=== PATIENT | female | born 1980 | race Caucasian/White ===

== ENCOUNTER 2016-05-28 01:28 | Emergency (ER) | payer BC, MEDICAID, OTHER ==
[~2016-05-28] VITALS: Ht 167.6 cm; Wt 59.0 kg
[2016-05-28 02:14] VITALS: BP 119/93
[2016-05-28] MEDS ORDERED: LORazepam Inj 2mg/ml 1ml IV ONE ×3 (02:15→04:15)
[2016-05-28] MEDS ORDERED: Solu-MEDROL 125mg Inj IVP ONE (02:15)
--- NOTE | 2016-05-28 02:56 | Emergency Room Report ---
History of Present Illness General Chief Complaint: Allergic Reaction Source: Patient Present Illness HPI This is a 36-year-old female who presents with an allergic reaction. Now her after eating dinner and on her way home she developed itching and welts on her body. She also developed of breath and felt left side of her neck being numb and a foreign body sensation. She took 100 mg of Benadryl without relief. Denies any fever chills denies any nausea vomiting. Does have some sore throat. No other complaint. She ate salad with pecans. She usually did not eat pecans. Allergies: Coded Allergies: METOCLOPRAMIDE (Verified Allergy, Unknown, 05/28/16) Patient History Past Medical History: see triage record, old chart reviewed Past Surgical History: none Pertinent Family History: none Social History: Denies: smoking Last Menstrual Period: 05/25/2016 Now: No Immunizations: other Reviewed Nursing Documentation: PMH: Agreed, PSxH: Agreed Nursing Documentation-PMH Past Medical History: No History, Except For Hx Neurological Problems: Yes Review of Systems Eye: Denies: blurred vision, eye pain ENT: Denies: ear pain, nose congestion, throat swelling Respiratory: Reports: shortness of breath, Denies: cough Cardiovascular: Denies: chest pain, palpitations Gastrointestinal: Denies: abdominal pain, diarrhea, nausea, vomiting Musculoskeletal: Denies: back pain, joint pain Skin: Reports: rash Neurological: Denies: headache, numbness Endocrine: Denies: increased thirst, increased urine Hematologic/Lymphatic: Denies: easy bruising All Other Systems: negative except mentioned in HPI Physical Exam Vital Signs Date Time Temp Pulse Resp B/P Pulse Ox O2 Delivery O2 Flow Rate FiO2 05/28/16 01:32 98.1 98 16 145/70 98 Room Air vitals unremarkable Sp02 EP Interpretation: reviewed, normal General Appearance: well appearing, no apparent distress, alert Head: normocephalic, atraumatic Eyes: bilateral eye EOMI, bilateral eye PERRL ENT: hearing grossly normal, normal pharynx Neck: full range of motion, supple, no meningismus Respiratory: chest non-tender, lungs clear, normal breath sounds Cardiovascular #1: regular rate, rhythm, no murmur Gastrointestinal: normal bowel sounds, non tender, no mass, no organomegaly, no bruit, non-distended Musculoskeletal: back normal, gait/station normal, normal range of motion Psychiatric: anxious Skin: warm/dry Medical Decision Making Diagnostic Impression: Primary Impression: Allergic reaction Qualified Codes: T78.40XA - Allergy, unspecified, initial encounter Additional Impression: Acute dyspnea ER Course Patient presents with allergic reaction and tachycardia with dyspnea. Tachycardia may be secondary to the multiple doses of Benadryl she took. She slowly improving. No respiratory distress. I did a CT scan to rule out PE. We 'll discharge home if negative. Lab Results Impression labs unremarkable except for elevate d-dimer CT/MRI/US Diagnostic Results CT/MRI/US Diagnostic Results : Imaging Test Ordered: ct chest Impression Neg per radiologist. Last Vital Signs Date Time Temp Pulse Resp B/P Pulse Ox O2 Delivery O2 Flow Rate FiO2 05/28/16 02:14 98.1 122 16 119/93 100 Room Air Status: improved Disposition: HOME, SELF-CARE Condition: Stable Scripts Prednisone* (PREDNISONE*) 20 Mg Tablet 40 MG ORAL DAILY, #8 TAB Prov: JUNITO MORALES M.D. 05/28/16 Patient Instructions: Food Allergy Additional Instructions: Followup with your DrDana in 7 days. Return if symptom worsen. JUNITO MORALES M.D. May 28, 2016 02:56
[2016-05-28 03:04] LABS: APPEARANCE,URINE CLEAR; KETONES,URINE NEGATIVE (NEGATIVE); LEUKOCYTE ESTERASE ,URINE 2+ (NEGATIVE); NITRITE,URINE NEGATIVE (NEGATIVE); PH,URINE 6 (4.5-8.0); PROTEIN,URINE NEGATIVE (NEGATIVE); UROBILINOGEN,URINE NORMAL MG/DL (0.0-1.0)
[2016-05-28 03:25] LABS: BACTERIA,URINE FEW /HPF; SQUAMOUS EPITHELIAL CELL,UR FEW /LPF (NONE/OCC)
[2016-05-28 04:20] LABS: ANION GAP 16 (5-15); CALCIUM 8.9 mg/dL (8.6-10.2); CARBON DIOXIDE 21 mEQ/L (20-30); CHLORIDE 102 mEQ/L (98-107); CREATININE 0.6 mg/dL (0.5-0.9); GLOMERULAR FILTRATION RATE > 60 mL/min (>60); HEMOLYSIS 195; SODIUM 139 mEQ/L (135-145)
[2016-05-28 04:25] LABS: BASOPHILS % (AUTO) 1.1 % (0.0-2.0); EOSINOPHILS % (AUTO) 1.7 % (0.0-3.0); LYMPHOCYTES % (AUTO) 30.6 % (20.0-45.0); MEAN CORPUSCULAR HEMOGLOBIN 29.6 PG (27.0-31.0); MEAN CORPUSCULAR HGB CONC 32.4 G/DL (32.0-36.0); MEAN CORPUSCULAR VOLUME 91 FL (80-99); MEAN PLATELET VOLUME 5.4 FL (6.5-10.1); MONOCYTES % (AUTO) 3.2 % (1.0-10.0); NEUTROPHILS % (AUTO) 63.3 % (45.0-75.0); PLATELET COUNT 578 K/UL (150-450); RED BLOOD COUNT 4.11 M/UL (4.20-5.40); RED CELL DISTRIBUTION WIDTH 14.1 % (11.6-14.8); WHITE BLOOD COUNT 7.9 K/UL (4.8-10.8)
[2016-05-28] MEDS ORDERED: DiphenhydrAMINE 50mg/ml Inj IVP ONE (04:45)
[2016-05-28] MEDS ORDERED: methylPREDNISolone Sod Succ 500 MG in NS 110 ML IVPB ONE ×2 (04:45→05:00)
[2016-05-28 06:20] VITALS: BP 121/83
[2016-05-28] MEDS ORDERED: PREDNISONE20 MG ORAL (06:33)
[2016-05-28 06:37] VITALS: BP 121/83
--- NOTE | 2016-05-28 09:42 | Diagnostic Imaging Report ---
ndication: Shortness of breath, chest pain Technique: IV administration nonionic contrast. Spiral acquisitions obtained from the lung bases to the lung apices. Multiplanar and 3-D reconstructions were generated. Total dose length product 750 mGycm. CTDIvol(s) 12, 63, 20 mGy. Per the technologist, the IV was a small caliber IV, due to patient being a difficult stick, which infiltrated during the infusion of contrast Comparison: None Findings: There is essentially no opacification of the pulmonary arteries. A very small amount of contrast is seen within the superior vena cava, aorta, and left ventricle. Findings are nondiagnostic 4 the diagnosis or exclusion of pulmonary embolus. Normal caliber thoracic aorta, no gross evidence of dissection although this is not excludable. Lung window images demonstrate an azygos lobe and fissure-normal anatomic variant. There is some image degradation due to respiratory motion artifact. No infiltrates, effusions, congestion, masses, or nodules. The heart size is normal. No pericardial effusion. No mediastinal or hilar mass or adenopathy. The included portions of the thyroid are unremarkable. No axillary or chest wall mass or adenopathy. The included upper abdominal anatomy is unremarkable Impression: Nondiagnostic for evaluation of pulmonary embolus, due to inadequate pulmonary arterial opacification No definite acute or significant abnormality demonstrated otherwise This agrees with the preliminary interpretation provided overnight by [facility]erad[facility] service. The CT scanner at [facility] is accredited by the [employer] and the scans are performed using protocols designed to limit radiation exposure to as low as reasonably achievable to attain images of sufficient resolution adequate for diagnostic evaluation.
== END 2016-05-28 06:37 | disposition home or self-care (01) ==
LOC: EMR 02:10
DX: T78.40XA Allergy, unspecified, initial encounter (principal); X58.XXXA Exposure to other specified factors, initial encounter; R06.00 Dyspnea, unspecified; R00.0 Tachycardia, unspecified
CPT/HCPCS: 36415; 71275; 80048; 80300; 81001; 81025; 85025; 85379; 87086; 96374; 96375; 99284; J1200; J2405; J2930; Q9967

== ENCOUNTER 2016-11-17 01:38 | Emergency (ER) | payer MEDICAID, OTHER ==
[~2016-11-17] VITALS: Ht 172.7 cm; Wt 54.4 kg
[~2016-11-17 01:38] MED LIST: PREDNISONE20 MG ORAL
[2016-11-17 02:00] VITALS: BP 128/70
[2016-11-17] MEDS ORDERED: Norco 5mg/325mg tab ORAL ONE (02:00)
[2016-11-17 02:09] LABS: APPEARANCE,URINE CLEAR; KETONES,URINE NEGATIVE (NEGATIVE); LEUKOCYTE ESTERASE ,URINE NEGATIVE (NEGATIVE); NITRITE,URINE POSITIVE (NEGATIVE); PH,URINE 5 (4.5-8.0); PROTEIN,URINE NEGATIVE (NEGATIVE); UROBILINOGEN,URINE 8 MG/DL (0.0-1.0)
[2016-11-17 02:21] LABS: BACTERIA,URINE OCCASIONAL /HPF; MUCUS,URINE FEW /LPF (NONE/OCC); RBC,URINE 0-2 /HPF (0 - 2); SQUAMOUS EPITHELIAL CELL,UR MODERATE /LPF (NONE/OCC); WBC,URINE 0-2 /HPF (0 - 2)
[2016-11-17] MEDS ORDERED: KEFLEX500 MG ORAL (02:33)
[2016-11-17] MEDS ORDERED: ACETAMINOPHEN-1 EAC1 ORAL (02:33)
[2016-11-17 02:44] VITALS: BP 128/70
--- NOTE | 2016-11-17 03:50 | Emergency Room Report ---
History of Present Illness General Chief Complaint: General Complaint Source: Patient Present Illness HPI 36-year-old female presents ED playing a toothache x2 days. Notes pain to tooth in right upper jaw. Patient states her dental insurance did not start until December 02. States pain is a 10 out of 10, throbbing, nonradiating. Denies any fevers or chills. Patient is also complaining of burning sensation when urinating for the last few days. Patient believes she has a UTI. Is currently taking Perdiem [id number]. Denies nausea or vomiting. No other aggravating relieving factors. Denies any other associated symptoms Allergies: Coded Allergies: METOCLOPRAMIDE (Verified Allergy, Unknown, 05/28/16) Uncoded Allergies: IV CONTRAST (Allergy, Unknown, 05/28/16) Patient History Past Medical History: none Past Surgical History: none Pertinent Family History: none Social History: Denies: alcohol use, drug use, smoking Now: No Immunizations: UTD Reviewed Nursing Documentation: PMH: Agreed, PSxH: Agreed Nursing Documentation-PMH Past Medical History: No Stated History Hx Cardiac Problems: No Hx Hypertension: No Hx Pacemaker: No Hx Asthma: No Hx COPD: No Hx Diabetes: No Hx Cancer: No Hx Gastrointestinal Problems: No Hx Dialysis: No History Of Psychiatric Problem: No Hx Neurological Problems: No Hx Cerebrovascular Accident: No Hx Seizures: No Review of Systems All Other Systems: negative except mentioned in HPI Physical Exam Vital Signs Date Time Temp Pulse Resp B/P Pulse Ox O2 Delivery O2 Flow Rate FiO2 11/17/16 01:48 98.4 96 16 128/70 98 Room Air Sp02 EP Interpretation: reviewed, normal General Appearance: alert, GCS 15, non-toxic, mild distress Head: normocephalic Eyes: bilateral eye PERRL, bilateral eye normal inspection ENT: other - pain to R upper 3rd molar. no fluctuance Neck: normal inspection Respiratory: chest non-tender, lungs clear, normal breath sounds, speaking full sentences Cardiovascular #1: normal inspection Gastrointestinal: normal inspection Rectal: deferred Genitourinary: no CVA tenderness Musculoskeletal: normal inspection Neurologic: alert, oriented x3, responsive, motor strength/tone normal, sensory intact, speech normal Psychiatric: normal inspection Skin: normal inspection Lymphatic: normal inspection Medical Decision Making Diagnostic Impression: Primary Impression: Positive test Additional Impressions: Tooth pain UTI (urinary tract infection) Qualified Codes: N39.0 - Urinary tract infection, site not specified ER Course 36-year-old female presents ED complaining of tooth pain. also c/o UTI Differential - Cracked tooth, dental abscess, cavity Patient placed on stretcher. After initial history, physical exam reveals a young female in mild distress. The tooth in question; there is no pulp exposed. No surrounding abscess. No induration or swelling. Given [place] in ED with pain improved UA positive. also positive. patient states she was unaware she was . No vaginal bleeding. No abdominal pain. She will followup with her [employer]IST we will prescribe Keflex which should help with both tooth pain and UTI. Safe in Diagnosis- positive test, tooth pain, UTI Stable and discharged to home prescription for Tylenol, Keflex. Instructed to see dentist. f/u with PMD/OBGYN. Return to ED if symptoms recur or worse Labs Test 11/17/16 01:56 Urine Color Red Urine Appearance Clear Urine pH 5 (4.5-8.0) Urine Specific Scott 1.020 (1.005-1.035) Urine Protein Negative (NEGATIVE) Urine Glucose (UA) Negative (NEGATIVE) Urine Ketones Negative (NEGATIVE) Urine Occult Blood 1+ (NEGATIVE) Urine Nitrite Positive (NEGATIVE) Urine Bilirubin 3+ (NEGATIVE) Urine Ictotest Urine Urobilinogen 8 MG/DL (0.0-1.0) Urine Leukocyte Esterase Negative (NEGATIVE) Urine RBC 0-2 /HPF (0 - 2) Urine WBC 0-2 /HPF (0 - 2) Urine Squamous Epithelial Cells Moderate /LPF (NONE/OCC) Urine Bacteria Occasional /HPF (NONE) Urine Mucus Few /LPF (NONE/OCC) Urine HCG, Qualitative Positive Last Vital Signs Date Time Temp Pulse Resp B/P Pulse Ox O2 Delivery O2 Flow Rate FiO2 11/17/16 02:44 98.4 11/17/16 02:44 96 16 128/70 98 Room Air Status: improved Disposition: HOME, SELF-CARE Condition: Stable Scripts Acetaminophen With Codeine (T#3) (TYLENOL #3 TAB*) Y Tab 1 TAB ORAL Q8H Y for For Pain, #20 TAB Prov: BRICE JADE M.D. 11/17/16 Cephalexin* (KEFLEX*) 500 Mg Capsule 500 MG ORAL Q6H, #28 CAP 0 Refills Prov: BRICE JADE M.D. 11/17/16 Patient Instructions: Dental Pain, Told-oa-Ectb BRICE JADE M.D. Nov 17, 2016 03:50
== END 2016-11-17 02:44 | disposition home or self-care (01) ==
LOC: EMR 01:58
DX: K08.89 Other specified disorders of teeth and supporting structures (principal); N39.0 Urinary tract infection, site not specified; Z32.01 Encounter for pregnancy test, result positive; Z88.8 Allergy status to other drugs, medicaments and biological substances; Z91.041 Radiographic dye allergy status
CPT/HCPCS: 81003; 81025; 99284

== ENCOUNTER 2017-02-23 15:46 | Emergency (ER) | payer MEDICAID, OTHER ==
[~2017-02-23] VITALS: Ht 167.6 cm; Wt 61.7 kg
[~2017-02-23 15:46] MED LIST changes: +ACETAMINOPHEN-1 EAC1 ORAL; +KEFLEX500 MG ORAL
[2017-02-23 16:10] VITALS: BP 142/86
[2017-02-23] MEDS ORDERED: Norco 5mg/325mg tab ORAL ONE (16:45)
[2017-02-23] MEDS ORDERED: TRAMADOL HCL50 MG ORAL (17:02)
[2017-02-23] MEDS ORDERED: AMOXICILLIN500 MG ORAL (17:03)
[2017-02-23 17:05] VITALS: BP 142/86
--- NOTE | 2017-02-23 22:21 | Emergency Room Report ---
History of Present Illness General Chief Complaint: Pain Source: Patient Present Illness HPI The patient is a 36 old female presenting for left sided facial pain and dental pain. She states that she first noticed tooth pain one week ago which she states that triggered her trigeminal neuralgia pain. Pain is a 10 out of 10 sharp sensation to the left upper tooth and is worse with chewing. She denies any other symptoms including N, V, cough, rash, dizziness, CP Allergies: Coded Allergies: METOCLOPRAMIDE (Verified Allergy, Unknown, 05/28/16) Uncoded Allergies: IV CONTRAST (Allergy, Unknown, 05/28/16) Patient History Past Medical History: see triage record Pertinent Family History: none Last Menstrual Period: 02/02/17 placental abruption Now: No Reviewed Nursing Documentation: PMH: Agreed, PSxH: Agreed Nursing Documentation-PMH Hx Cardiac Problems: Yes - SVT - had ablation 2012 Hx Hypertension: No Hx Pacemaker: No Hx Asthma: No Hx COPD: No Hx Diabetes: No Hx Cancer: No Hx Gastrointestinal Problems: No Hx Dialysis: No - Stent in right ureter Hx Neurological Problems: Yes - Occipital neuralgia Hx Cerebrovascular Accident: No Hx Seizures: No Review of Systems All Other Systems: negative except mentioned in HPI Physical Exam Vital Signs Date Time Temp Pulse Resp B/P (MAP) Pulse Ox O2 Delivery O2 Flow Rate FiO2 02/23/17 16:00 98.1 111 16 142/86 100 Room Air Sp02 EP Interpretation: reviewed, normal General Appearance: no apparent distress, alert, GCS 15, non-toxic Head: normocephalic, atraumatic Eyes: bilateral eye normal inspection, bilateral eye PERRL ENT: hearing grossly normal, normal pharynx, no angioedema, normal voice, uvula midline, other - TTP over the L upper premolar with surrounding erythema Neck: full range of motion, supple/symm/no masses Respiratory: chest non-tender, lungs clear, normal breath sounds, speaking full sentences Musculoskeletal: back normal, gait/station normal, normal range of motion, non- tender Neurologic: alert, oriented x3, responsive, motor strength/tone normal, sensory intact, speech normal Psychiatric: judgement/insight normal, memory normal, mood/affect normal, no suicidal/homicidal ideation Skin: normal color, no rash, warm/dry, well hydrated Lymphatic: no adenopathy Medical Decision Making PA Attestation Dr. Massey is my supervising physician. Patient management was discussed with my supervising physician Diagnostic Impression: Primary Impression: Dental infection ER Course The patient is a 36 old female presenting for left sided facial pain and dental pain. Diagnoses considered but not limited to: Dental jayda, dental abscess, toothache , gingivitis PE: afebrile. NAD HEENT: L upper premolar tenderness with surrounding erythema. No abscess. The patient be treated for dental infection with prescriptions for pain medication and antibiotics. She needs to FU with dentist DACIA Last Vital Signs Date Time Temp Pulse Resp B/P (MAP) Pulse Ox O2 Delivery O2 Flow Rate FiO2 02/23/17 17:05 98.1 74 16 142/86 100 Room Air Status: improved Disposition: HOME, SELF-CARE Condition: Improved Scripts Amoxicillin* (AMOXIL*) 500 Mg Capsule 500 MG ORAL Q12HR, #20 CAP Prov: DOTTIE ALBERT 02/23/17 Tramadol Hcl* (ULTRAM*) 50 Mg Tablet 50 MG ORAL Q6H Y for For Pain, #10 TAB 0 Refills Prov: DOTTIE ALBERT 02/23/17 Patient Instructions: Dental Pain Additional Instructions: I discussed my findings with the patient. All questions and concerns have been answered. Treatment and medication compliance have been addressed. I advised the patient that they need to follow up with PMD in 3-5 days. Return to ED if symptoms worsen, new symptoms arise, or if needed for any reason. Patient verbalized understanding of discharge instructions. DOTTIE ALBERT Feb 23, 2017 22:21
== END 2017-02-23 17:35 | disposition home or self-care (01) ==
LOC: EMR 16:45
DX: K04.7 Periapical abscess without sinus (principal); R51 Headache; Z88.8 Allergy status to other drugs, medicaments and biological substances; Z91.041 Radiographic dye allergy status
CPT/HCPCS: 99283

== ENCOUNTER 2017-04-09 18:19 | Emergency (ER) | payer MEDICAID, OTHER ==
[~2017-04-09] VITALS: Ht 167.6 cm; Wt 59.0 kg
[~2017-04-09 18:19] MED LIST changes: +AMOXICILLIN500 MG ORAL; +TRAMADOL HCL50 MG ORAL
[2017-04-09] MEDS ORDERED: Ketorolac 30mg Inj IV ONE (19:15)
[2017-04-09 19:29] VITALS: BP 140/82
[2017-04-09 20:45] LABS: EOSINOPHILS % (AUTO) 0.8 % (0.0-3.0); LYMPHOCYTES % (AUTO) 27.7 % (20.0-45.0); MEAN CORPUSCULAR HEMOGLOBIN 28.7 PG (27.0-31.0); MEAN CORPUSCULAR VOLUME 90 FL (80-99); MEAN PLATELET VOLUME 5.7 FL (6.5-10.1); MONOCYTES % (AUTO) 7.1 % (1.0-10.0); NEUTROPHILS % (AUTO) 63.4 % (45.0-75.0); PLATELET COUNT 361 K/UL (150-450); RED BLOOD COUNT 4.14 M/UL (4.20-5.40); RED CELL DISTRIBUTION WIDTH 16.4 % (11.6-14.8); WHITE BLOOD COUNT 6.2 K/UL (4.8-10.8)
[2017-04-09 20:46] LABS: APPEARANCE,URINE SLIGHTLY CLOUDY; KETONES,URINE NEGATIVE (NEGATIVE); LEUKOCYTE ESTERASE ,URINE 3+ (NEGATIVE); NITRITE,URINE NEGATIVE (NEGATIVE); PH,URINE 6 (4.5-8.0); PROTEIN,URINE 1+ (NEGATIVE); UROBILINOGEN,URINE NORMAL MG/DL (0.0-1.0)
[2017-04-09 20:54] LABS: BACTERIA,URINE FEW /HPF; SQUAMOUS EPITHELIAL CELL,UR MANY /LPF (NONE/OCC)
[2017-04-09 21:05] LABS: ANION GAP 11 mmol/L (5-15); CALCIUM 8.9 MG/DL (8.5-10.1); CARBON DIOXIDE 24 MMOL/L (21-32); CHLORIDE 107 MMOL/L (98-107); CREATININE 0.9 MG/DL (0.55-1.30); GLOMERULAR FILTRATION RATE > 60 mL/min (>60); POTASSIUM 3.4 MMOL/L (3.5-5.1); SODIUM 142 MMOL/L (136-145)
[2017-04-09 21:09] LABS: ALANINE AMINOTRANSFERASE 14 U/L (12-78); ALBUMIN/GLOBULIN RATIO 1.1 (1.0-2.7); ASPARTATE AMINO TRANSFERASE 15 U/L (15-37); LIPASE 125 U/L (73-393); TOTAL PROTEIN 7.4 G/DL (6.4-8.2)
[2017-04-09] MEDS ORDERED: cefTRIAXone 1 GM in NS 55 ML IVPB ONE (21:15)
[2017-04-09] MEDS ORDERED: Morphine Sulfate 4mg/ml Inj IVP ONE (21:15)
[2017-04-09] MEDS ORDERED: DiphenhydrAMINE 50mg/ml Inj IVP ONE (21:30)
[2017-04-09] MEDS ORDERED: Solu-MEDROL 125mg Inj IVP ONE (22:00)
[2017-04-09] MEDS ORDERED: KEFLEX500 MG ORAL (22:10)
[2017-04-09] MEDS ORDERED: NORCO 5-325 TA1 EAC1 ORAL (22:27)
--- NOTE | 2017-04-09 22:35 | Emergency Room Report ---
History of Present Illness General Chief Complaint: Abdominal Pain Source: Patient Present Illness HPI Patient is a 37-year-old female with increased right flank pain. Patient had sudden onset of symptoms. The patient had reported prior history of renal stent on the right side. The patient also reports having prior history of ovarian cysts. She reports having been chronically taking pain medications for neck pain. She states that she has not been vomiting. She denied any fever.The patient reported having severe sharp pain. Allergies: Coded Allergies: METOCLOPRAMIDE (Verified Allergy, Unknown, 05/28/16) Uncoded Allergies: IV CONTRAST (Allergy, Unknown, 05/28/16) Patient History Last Menstrual Period: June 2016 Now: No : 3 Para: 2 Reviewed Nursing Documentation: PMH: Agreed, PSxH: Agreed Nursing Documentation-PMH Hx Cardiac Problems: Yes - Hx SVT Hx Hypertension: No Hx Pacemaker: No Hx Asthma: No Hx COPD: No Hx Diabetes: No Hx Cancer: No Hx Dialysis: No - Stent in right ureter Hx Neurological Problems: Yes - left sided occipital neuralgia Hx Cerebrovascular Accident: No Hx Seizures: No Physical Exam Vital Signs Date Time Temp Pulse Resp B/P (MAP) Pulse Ox O2 Delivery O2 Flow Rate FiO2 04/09/17 18:24 97.9 138 14 134/95 98 04/09/17 19:29 Room Air Medical Decision Making Diagnostic Impression: Primary Impression: Renal colic on right side Additional Impression: UTI (urinary tract infection) ER Course Patient presented for flank pain. Differential diagnosis included was not limited to pneumonia, renal stone, rib fracture, pulmonary embolism, ulcer, enteritis, pyelonephritis among others. Because of complexity of patient's case laboratory testing and imaging studies were ordered. The [facility] database was reviewed for the patient's prior prescription history. The patient was noted to have a recent prescriptions for Ultram. The patient was noted to have possible kidney stone on ultrasound without evidence of hydronephrosis. The pelvic ultrasound showed no evidence of ovarian cyst or torsion. The patient was given IV fluids as well as IV pain medications. The patient was noted to have some urticarial rash associated with morphine and was given IV Benadryl. The patient is advised to follow up with primary care doctor in 1-2 days. The patient was also advised followup with her urologist. Patient is advised to return if any worsening condition or if any changes in status that are concerning. Labs Test 04/09/17 20:20 White Blood Count 6.2 K/UL (4.8-10.8) Red Blood Count 4.14 M/UL (4.20-5.40) Hemoglobin 11.9 G/DL (12.0-16.0) Hematocrit 37.1 % (37.0-47.0) Mean Corpuscular Volume 90 FL (80-99) Mean Corpuscular Hemoglobin 28.7 PG (27.0-31.0) Mean Corpuscular Hemoglobin Concent 32.0 G/DL (32.0-36.0) Red Cell Distribution Width 16.4 % (11.6-14.8) Platelet Count 361 K/UL (150-450) Mean Platelet Volume 5.7 FL (6.5-10.1) Neutrophils (%) (Auto) 63.4 % (45.0-75.0) Lymphocytes (%) (Auto) 27.7 % (20.0-45.0) Monocytes (%) (Auto) 7.1 % (1.0-10.0) Eosinophils (%) (Auto) 0.8 % (0.0-3.0) Basophils (%) (Auto) 1.0 % (0.0-2.0) Urine Color Pale yellow Urine Appearance Slightly cloudy Urine pH 6 (4.5-8.0) Urine Specific Arvin 1.005 (1.005-1.035) Urine Protein 1+ (NEGATIVE) Urine Glucose (UA) Negative (NEGATIVE) Urine Ketones Negative (NEGATIVE) Urine Occult Blood 5+ (NEGATIVE) Urine Nitrite Negative (NEGATIVE) Urine Bilirubin Negative (NEGATIVE) Urine Urobilinogen Normal MG/DL (0.0-1.0) Urine Leukocyte Esterase 3+ (NEGATIVE) Urine RBC 2-4 /HPF (0 - 2) Urine WBC 5-10 /HPF (0 - 2) Urine Squamous Epithelial Cells Many /LPF (NONE/OCC) Urine Bacteria Few /HPF (NONE) Sodium Level 142 MMOL/L (136-145) Potassium Level 3.4 MMOL/L (3.5-5.1) Chloride Level 107 MMOL/L (98-107) Carbon Dioxide Level 24 MMOL/L (21-32) Anion Gap 11 mmol/L (5-15) Blood Urea Nitrogen 13 mg/dL (7-18) Creatinine 0.9 MG/DL (0.55-1.30) Estimat Glomerular Filtration Rate > 60 mL/min (>60) Glucose Level 96 MG/DL (74-106) Calcium Level 8.9 MG/DL (8.5-10.1) Total Bilirubin 0.2 MG/DL (0.2-1.0) Aspartate Amino Transf (AST/SGOT) 15 U/L (15-37) Alanine Aminotransferase (ALT/SGPT) 14 U/L (12-78) Alkaline Phosphatase 66 U/L (46-116) Total Protein 7.4 G/DL (6.4-8.2) Albumin 3.8 G/DL (3.4-5.0) Globulin 3.6 g/dL Albumin/Globulin Ratio 1.1 (1.0-2.7) Lipase 125 U/L (73-393) Last Vital Signs Date Time Temp Pulse Resp B/P (MAP) Pulse Ox O2 Delivery O2 Flow Rate FiO2 04/09/17 19:29 97.9 14 140/82 100 Room Air 04/09/17 18:24 138 Status: improved Disposition: HOME, SELF-CARE Condition: Stable Scripts Hydrocodone Bit/Acetaminophen 5-325* (NORCO 5-325 TABLET*) 1 Each Tablet 1 TAB ORAL Q4H Y for For Pain, #20 TAB Prov: Rob Lama 04/09/17 Cephalexin* (KEFLEX*) 500 Mg Capsule 500 MG ORAL Q6H, #28 CAP 0 Refills Prov: Rob Lama 04/09/17 Patient Instructions: Abdominal Pain, Adult Rob Lama Apr 09, 2017 22:35
[2017-04-09 22:45] VITALS: BP 130/81
[2017-04-09] MEDS ORDERED: Lidocaine 2% 100mg/5ml Carp IV ONE (22:45)
--- NOTE | 2017-04-10 12:14 | Diagnostic Imaging Report ---
Indication: Pain. Per patient, history of renal stent for UPJ obstruction. Stent removed one month ago. Renal stone passed before stent was placed. Assess for hydronephrosis. Technique: Grayscale and color Doppler imaging of the kidneys and bladder. Comparison: None available. Correlation made to images of the upper abdomen from CT angiogram of the chest 05/28/16 Findings: Right kidney measures 11.2 cm in length. It demonstrates normal parenchymal thickness and echogenicity. There is no hydronephrosis. Punctate, non-shadowing foci in the right kidney noted and may represent a small nonobstructing renal stones versus artifact. Normal vascular flow to the right kidney is seen. The left kidney measures 10 cm length. Images normal parenchymal thickness and echogenicity. There is no hydronephrosis. A simple appearing renal cyst is noted in the lower pole the left kidney. Bladder is unremarkable in appearance. Imaged portions of the IVC and liver are unremarkable in appearance. Impression: No evidence of hydronephrosis bilaterally. Echogenic foci in the right kidney which may be artifactual versus reflect nonobstructing punctate stones. Noncontrast CT scan can be obtained as clinically indicated. This corresponds with the preliminary report.
--- NOTE | 2017-04-10 12:22 | Diagnostic Imaging Report ---
Indication: Pelvic pain. History of ovarian cysts an ovarian torsion surgery in 2013. in February 2017. IUD placed after . Technique: Transabdominal and endovaginal pelvic ultrasound was performed. Findings: status was not reported. Please correlate with clinical history/current status results. Intrauterine device is noted. Uterus measures 8.4 x 5 x 6.4 cm. Endometrial thickness measures 2.3 mm. There is no free pelvic fluid. There is a hypoattenuating structure in the cervix representing nabothian cyst. A low attenuation structure in the uterine fundus is noted. There is no internal vascularity on interrogation with color Doppler. Bilateral ovaries are identified with color flow. No evidence to suggest ovarian torsion at this time. Small follicular cysts are seen. Impression: No evidence to suggest ovarian torsion at this time. No complex adnexal lesion. Intrauterine device in place. Indeterminate fluid or cystic structure in the endometrial cavity. Correlate clinically. Short-term interval followup ultrasound be obtained to assess for interval change. Probable nabothian cyst. This corresponds to the preliminary report.
== END 2017-04-09 22:45 | disposition home or self-care (01) ==
LOC: EMR 18:40
DX: N39.0 Urinary tract infection, site not specified (principal); Z97.5 Presence of (intrauterine) contraceptive device
CPT/HCPCS: 36415; 76775; 76856; 80053; 81003; 83690; 85025; 96361; 96365; 96375; 99284; J0696; J1200; J2270; J2405; J2930

== ENCOUNTER 2017-09-12 01:06 | Emergency (ER) | payer MEDICAID ==
[~2017-09-12] VITALS: Ht 167.6 cm; Wt 59.0 kg
[~2017-09-12 01:06] MED LIST changes: +NORCO 5-325 TA1 EAC1 ORAL
[2017-09-12] MEDS ORDERED: Ketorolac 30mg Inj IV ONE (01:30)
[2017-09-12] MEDS ORDERED: Morphine Sulfate 4mg/ml Inj IVP ONE (01:30)
--- NOTE | 2017-09-12 01:30 | Emergency Room Report ---
History of Present Illness General Chief Complaint: Headache Source: Patient Present Illness HPI Is a 37-year-old female with a history of occipital neuralgia. She get frequent headache. She had a bad headache every 3 or 4 months requiring go to the ER. No fever chills. This headache has been ongoing for last 3 days. Mostly in the left side radiating to the front. Has nausea but no vomiting. No fever chills but no focal deficit. No slurred speech. Pain is 10 out of 10. Allergies: Coded Allergies: METOCLOPRAMIDE (Verified Allergy, Unknown, 05/28/16) Uncoded Allergies: IV CONTRAST (Allergy, Unknown, 05/28/16) Patient History Past Medical History: see triage record, old chart reviewed Past Surgical History: other Pertinent Family History: none Social History: Denies: smoking Last Menstrual Period: 08/11/17 Now: No Immunizations: other Reviewed Nursing Documentation: PMH: Agreed; PSxH: Agreed Nursing Documentation-PMH Past Medical History: No History, Except For Hx Cardiac Problems: Yes - SVT Hx Hypertension: No Hx Pacemaker: No Hx Asthma: No Hx COPD: No Hx Diabetes: No Hx Cancer: No Hx Dialysis: No - Stent in right ureter Hx Neurological Problems: Yes - Left sided occipital neuralgia Hx Cerebrovascular Accident: No Hx Seizures: No Review of Systems Eye: Denies: eye pain, blurred vision ENT: Denies: ear pain, nose congestion, throat swelling Respiratory: Denies: cough, shortness of breath Cardiovascular: Denies: chest pain, palpitations Gastrointestinal: Denies: abdominal pain, diarrhea, nausea, vomiting Musculoskeletal: Denies: back pain, joint pain Skin: Denies: rash Neurological: Reports: headache; Denies: numbness Endocrine: Denies: increased thirst, increased urine Hematologic/Lymphatic: Denies: easy bruising All Other Systems: negative except mentioned in HPI Physical Exam Vital Signs Date Time Temp Pulse Resp B/P (MAP) Pulse Ox O2 Delivery O2 Flow Rate FiO2 09/12/17 01:13 98.5 160 16 130/92 97 Room Air 98.4 vitals with tachycardia Sp02 EP Interpretation: reviewed, normal General Appearance: well appearing, no apparent distress, alert Head: normocephalic, atraumatic Eyes: bilateral eye PERRL, bilateral eye EOMI ENT: hearing grossly normal, normal pharynx Neck: full range of motion, supple, no meningismus Respiratory: chest non-tender, lungs clear, normal breath sounds Cardiovascular #1: regular rate, rhythm, no murmur, tachycardia - 120 Gastrointestinal: normal bowel sounds, non tender, no mass, no organomegaly, no bruit, non-distended Musculoskeletal: back normal, gait/station normal, normal range of motion Psychiatric: mood/affect normal Skin: warm/dry Medical Decision Making Diagnostic Impression: Primary Impression: Headache Qualified Codes: R51 - Headache ER Course Patient presents with exacerbation of her chronic headache. She is sexually for IV access for multiple ER visit and blood drawn the past. She wanted her meds as IM. Heart rate much improved down to the 90s. We'll discharge home. I see no evidence of ACS, PE, dissection to name a few. This headache is typical in presentation for her. Last Vital Signs Date Time Temp Pulse Resp B/P (MAP) Pulse Ox O2 Delivery O2 Flow Rate FiO2 09/12/17 01:13 98.5 160 16 130/92 97 Room Air 98.4 Status: improved Disposition: HOME, SELF-CARE Condition: Stable Patient Instructions: General Headache Without Cause Additional Instructions: Follow-up with your DrDana in 3-5 days. Return if symptom worsen. JUNITO MORALES M.D. September 12, 2017 01:30
[2017-09-12] MEDS ORDERED: Morphine Sulfate 4mg/ml Inj ONE (02:02)
[2017-09-12] MEDS ORDERED: Ketorolac 30mg Inj IM ONE (02:30)
[2017-09-12] MEDS ORDERED: Morphine Sulfate 4mg/ml Inj IM ONE (02:30)
[2017-09-12 02:37] VITALS: BP 130/92
== END 2017-09-12 02:42 | disposition home or self-care (01) ==
LOC: EMR 01:29
DX: R51 Headache (principal); M54.81 Occipital neuralgia; Z88.8 Allergy status to other drugs, medicaments and biological substances; Z91.041 Radiographic dye allergy status
CPT/HCPCS: 96372; 96374; 96375; 99283; J1885; J2270

== ENCOUNTER 2017-10-08 21:14 | Emergency (ER) | payer MEDICAID ==
[~2017-10-08] VITALS: Ht 167.6 cm; Wt 60.3 kg
--- NOTE | 2017-10-08 21:35 | Emergency Room Report ---
History of Present Illness General Chief Complaint: Upper Extremity Injury Source: Patient Present Illness HPI Patient is a 37-year-old female who presents after increased left thumb pain. Patient ports having periods fracture to her left thumb. Patient reports having hyperextended her thumb and having increased pain subsequently. Patient denies other recent trauma. Allergies: Coded Allergies: METOCLOPRAMIDE (Verified Allergy, Unknown, 05/28/16) Uncoded Allergies: IV CONTRAST (Allergy, Unknown, 05/28/16) Patient History Last Menstrual Period: unknown Now: No Reviewed Nursing Documentation: PMH: Agreed; PSxH: Agreed Nursing Documentation-PMH Hx Cardiac Problems: Yes - SVT Hx Hypertension: No Hx Pacemaker: No Hx Asthma: No Hx COPD: No Hx Diabetes: No Hx Cancer: No Hx Dialysis: No - Stent in right ureter Hx Neurological Problems: Yes - Left sided occipital neuralgia Hx Cerebrovascular Accident: No Hx Seizures: No Review of Systems All Other Systems: negative except mentioned in HPI Physical Exam Vital Signs Date Time Temp Pulse Resp B/P (MAP) Pulse Ox O2 Delivery O2 Flow Rate FiO2 10/08/17 21:17 98.5 118 18 159/84 98 Room Air 98.4 General Appearance: well appearing, no apparent distress, alert, GCS 15, non- toxic Head: normocephalic, atraumatic ENT: hearing grossly normal, normal voice Neck: full range of motion, supple Respiratory: no respiratory distress, speaking full sentences Musculoskeletal: no calf tenderness Neurologic: normal gait Psychiatric: mood/affect normal Skin: no rash Medical Decision Making Diagnostic Impression: Primary Impression: Left thumb sprain ER Course The patient presented for left thumb pain. The differential diagnosis included wasn't limited to sprain, fracture, dislocation among others. The patient states that she takes tramadol chronically for headaches. The patient was noted to have laxity with hyperextension. X-ray of the left hand 3 views interpreted by me showed normal bony alignment with the noted evident fracture. The patient was placed in his thumb spica splint. The patient is advised to follow-up with primary care physician for orthopedic referral. The patient was given Tylenol for pain. The patient was given prescription for ibuprofen. The patient appears to be somewhat upset that she was not given stronger narcotic pain medications prescriptions however this does not appear to be indicated. Patient the was advised to continue taking her Tylenol and keep her hand elevated Last Vital Signs Date Time Temp Pulse Resp B/P (MAP) Pulse Ox O2 Delivery O2 Flow Rate FiO2 10/08/17 21:17 98.5 118 18 159/84 98 Room Air 98.4 Status: improved Disposition: HOME, SELF-CARE Condition: Stable Scripts Ibuprofen* (MOTRIN*) 600 Mg Tablet 600 MG ORAL Q8H PRN for For Pain, #30 TAB 0 Refills Prov: Rob Lama MD 10/08/17 Rob Lama MD Oct 08, 2017 21:35
[2017-10-08] MEDS ORDERED: IBUPROFEN600 MG ORAL (22:04)
[2017-10-08 22:07] VITALS: BP 159/84
--- NOTE | 2017-10-09 12:32 | Diagnostic Imaging Report ---
Indication: pain. Left hand pain Findings: 3 views of the left hand were obtained. Normal alignment is demonstrated. No acute fractures, erosions, or periosteal reaction are seen. Soft tissues are unremarkable. Impression: No acute findings.
== END 2017-10-08 22:07 | disposition home or self-care (01) ==
LOC: EMR 21:35
DX: S63.602A Unspecified sprain of left thumb, initial encounter (principal); X58.XXXA Exposure to other specified factors, initial encounter; Y92.9 Unspecified place or not applicable; Z88.8 Allergy status to other drugs, medicaments and biological substances; Z91.041 Radiographic dye allergy status
CPT/HCPCS: 99283

== ENCOUNTER 2018-04-30 19:40 | Emergency (ER) | payer MEDICAID, OTHER ==
[~2018-04-30] VITALS: Ht 167.6 cm; Wt 59.0 kg
[~2018-04-30 19:40] MED LIST changes: +IBUPROFEN600 MG ORAL
[2018-04-30 19:55] VITALS: BP 142/88
[2018-04-30] MEDS ORDERED: CLINDAMYCIN HC300 MG ORAL (20:12)
[2018-04-30] MEDS ORDERED: PERCOCET 5-3251 EACH ORAL (20:12)
--- NOTE | 2018-04-30 20:14 | Emergency Room Report ---
History of Present Illness General Chief Complaint: Toothache Source: Patient Present Illness HPI toothache on the right molar. Complains of a broken tooth. Patient is scheduled to see a dentist in 4 days. Radiating to the ear. No fever. No trismus. Allergies: Coded Allergies: METOCLOPRAMIDE (Verified Allergy, Unknown, 05/28/16) Uncoded Allergies: IV CONTRAST (Allergy, Unknown, 05/28/16) Patient History Past Medical History: none Past Surgical History: none Pertinent Family History: none Nursing Documentation-PMH Hx Cardiac Problems: Yes - SVT Hx Hypertension: No Hx Pacemaker: No Hx Asthma: No Hx COPD: No Hx Diabetes: No Hx Cancer: No Hx Dialysis: No - Stent in right ureter Hx Neurological Problems: Yes - Left sided occipital neuralgia Hx Cerebrovascular Accident: No Hx Seizures: No Review of Systems All Other Systems: negative except mentioned in HPI Physical Exam Vital Signs Date Time Temp Pulse Resp B/P (MAP) Pulse Ox O2 Delivery O2 Flow Rate FiO2 04/30/18 19:50 97.5 101 18 145/101 99 Room Air General Appearance: well appearing, no apparent distress Head: normocephalic, atraumatic ENT: other - Fracture tooth on the molar, right lower, tooth #19 Neck: full range of motion, supple Respiratory: no respiratory distress, speaking full sentences Procedures Additional Procedure Procedure Narrative After getting consent from the patient, an inferior alveolar block was done using 1 mL of Marcaine. The patient tolerated procedure well. Regional anesthesia was achieved. Minimal blood loss. Medical Decision Making Diagnostic Impression: Primary Impression: Toothache Last Vital Signs Date Time Temp Pulse Resp B/P (MAP) Pulse Ox O2 Delivery O2 Flow Rate FiO2 04/30/18 19:50 97.5 101 18 145/101 99 Room Air Disposition: HOME, SELF-CARE Condition: Stable Scripts Clindamycin Hcl (CLINDAMYCIN HCL) 300 Mg Capsule 300 MG ORAL THREE TIMES A DAY for 7 Days, #21 CAP Prov: CHIRAG MCDOWELL 04/30/18 Oxycodone/Acetaminophen 5-325* (PERCOCET 5-325 MG TABLET*) 1 Each Tablet 1 TAB ORAL Q6H PRN for For Pain, #20 TAB Prov: CHIRAG MCDOWELL 04/30/18 Referrals: NON PHYSICIAN (PCP) Patient Instructions: Dental Pain CHIRAG MCDOWELL Apr 30, 2018 20:14
[2018-04-30] MEDS ORDERED: Bupivacaine 0.5% Inj 30 ml vial INJ ONE (20:15)
[2018-04-30 20:55] VITALS: BP 135/82
[2018-04-30] MEDS ORDERED: Ketorolac 60mg Inj IM ONE (21:00)
== END 2018-04-30 20:55 | disposition home or self-care (01) ==
LOC: EMR 20:06
DX: K08.89 Other specified disorders of teeth and supporting structures (principal); Z88.8 Allergy status to other drugs, medicaments and biological substances; Z91.041 Radiographic dye allergy status
CPT/HCPCS: 96372; 99283; J3490

== ENCOUNTER 2018-05-16 15:12 | Emergency (ER) | payer MEDICAID ==
[~2018-05-16] VITALS: Ht 167.6 cm; Wt 59.0 kg
[~2018-05-16 15:12] MED LIST changes: +CLINDAMYCIN HC300 MG ORAL; +PERCOCET 5-3251 EACH ORAL
[2018-05-16] MEDS ORDERED: AMOXIL250 MG ORAL (15:31)
[2018-05-16] MEDS ORDERED: Ketorolac 30mg Inj IM ONE (15:45)
--- NOTE | 2018-05-16 15:45 | Emergency Room Report ---
History of Present Illness General Chief Complaint: Skin Rash/Abscess Source: Patient Present Illness HPI 38-year-old female patient presents the ER complaining of right-sided mouth pain status post tooth extraction 4 days ago. Reports was seen by dentist and prescribed Tylenol 3, states she used all the medication. Patient reports that she was previously seen in the ER for similar symptoms, states that her dentist currently have her on antibiotics as well. Reports initially after the procedure she had a fever, denies fever since that time, denies fever currently in the ER. Denies vomiting. Reports she is to return to the dentist in 2 weeks to have the sutures removed and to have crowns put in and a root canal. Requesting pain medication or an injection of pain medicine "like the last time ". Denies other acute aggravating or relieving factors. Allergies: Coded Allergies: METOCLOPRAMIDE (Verified Allergy, Unknown, 05/28/16) Uncoded Allergies: IV CONTRAST (Allergy, Unknown, 05/28/16) Patient History Past Medical History: see triage record Last Menstrual Period: 05/16/17 Now: No - 15 months ago gave : 1 Para: 1 Reviewed Nursing Documentation: PMH: Agreed; PSxH: Agreed Nursing Documentation-PMH Past Medical History: No History, Except For Hx Cardiac Problems: Yes - SVT Hx Hypertension: No Hx Pacemaker: No Hx Asthma: No Hx COPD: No Hx Diabetes: No Hx Cancer: No Hx Dialysis: No - Stent in right ureter Hx Neurological Problems: Yes - Left sided occipital neuralgia Hx Cerebrovascular Accident: No Hx Seizures: No Review of Systems All Other Systems: negative except mentioned in HPI Physical Exam Vital Signs Date Time Temp Pulse Resp B/P (MAP) Pulse Ox O2 Delivery O2 Flow Rate FiO2 05/16/18 15:26 98.2 125 18 128/71 96 Room Air Sp02 EP Interpretation: reviewed, normal General Appearance: well appearing, no apparent distress, alert, GCS 15, non- toxic Head: normocephalic, atraumatic Eyes: bilateral eye normal inspection, bilateral eye PERRL ENT: hearing grossly normal, normal pharynx, no angioedema, normal voice, TMs + canals normal, uvula midline, moist mucus membranes, other - Right lower gum: Missing molars, sutures present, no erythema or edema, no bleeding Respiratory: lungs clear, normal breath sounds, no rhonchi, no respiratory distress, no accessory muscle use, no wheezing, speaking full sentences Cardiovascular #1: regular rate, rhythm, no edema Medical Decision Making PA Attestation Dr. Lama is my supervising Physician whom patient management has been discussed with. Diagnostic Impression: Primary Impression: Pain, dental ER Course Pt. presents to the ED c/o dental pain. Ddx considered but are not limited to cellulitis, abscess, dental caries, gingivitis, opioid dependence. Does not require imaging at this time. Vital signs: are WNL, pt. is afebrile ED INTERVENTIONS: Nontoxic appearing, speaking full sentences, no active draining, mild edema, no trismus or vision changes. No signs of abscess, no fluctuance, erythema or edema. CURES cures report shows patient had a 5-day supply of Tylenol with Codeine filled 4 days ago, patient states that she completed all drugs. Informed patient not to take more than the recommended dose of medication. Follow-up with dentist or primary care provider for further treatment of pain symptoms. Informed patient would not be able to provide her with refill of opioid prescription at this time. Offered to provide patient with Toradol in the ER for pain. Patient said "okay ". Informed by nurse patient eloped prior to receiving medication. DISCHARGE: At this time pt. is stable for d/c to home. Patient is resting comfortably, in no acute distress, nontoxic appearing, talking and smiling without difficulty. Will provide printed patient care instructions and any necessary prescriptions. Care plan and follow up instructions have been discussed with the patient prior to discharge. Patient instructed to follow-up with primary care provider in 2 - 3 days. Followup with dentist. Patient questions asked and answered. Patient reports understanding and agreement to treatment plan. ER precautions given. Patient instructed to return to ER immediately for any new or worsening of symptoms including but not limited to fever, worsening of pain symptoms, worsening of erythema, red streaking. - Please note that this Emergency Department Report was dictated using [employer] administrative assistant technology software, occasionally this can lead to erroneous entry secondary to interpretation by the dictation equipment. Last Vital Signs Date Time Temp Pulse Resp B/P (MAP) Pulse Ox O2 Delivery O2 Flow Rate FiO2 05/16/18 15:26 98.2 125 18 128/71 96 Room Air Disposition: ELOPED Condition: Stable Additional Instructions: Follow-up with dentist for further treatment of pain symptoms. followup with primary care provider in 3 -5 days. Take medications as directed. Patient questions asked and answered. ER precautions given, patient instructed to return to ER immediately for any new or worsening of symptoms. Shar Urena May 16, 2018 15:45
[2018-05-16 15:59] VITALS: BP 128/71
--- NOTE | 2018-05-16 16:00 | NUR ---
ED Nurse Note:pt. was seen by ER PA and ordered toradol for pain releived -pt. wanted pain med with codeine instead- she left ER without notifying nurse, ER PA was made awaire of reina, pt. is A/ox4 ambulatory condition stable
[2018-05-16 16:02] VITALS: BP 128/71
== END 2018-05-16 16:03 | disposition left against medical advice (07) ==
LOC: EMR 15:40
DX: K08.89 Other specified disorders of teeth and supporting structures (principal); K08.409 Partial loss of teeth, unspecified cause, unspecified class
CPT/HCPCS: 99282

== ENCOUNTER 2018-11-10 13:34 | Emergency (ER) | payer MEDICAID ==
[~2018-11-10] VITALS: Ht 167.6 cm; Wt 60.8 kg
[~2018-11-10 13:34] MED LIST changes: +AMOXIL250 MG ORAL
[2018-11-10] MEDS ORDERED: ROBAXIN500 MG PO (13:43)
[2018-11-10 13:45] VITALS: BP 139/91
--- NOTE | 2018-11-10 13:45 | NUR ---
ED Nurse Note: pt came in due with severe right flank/side pain. has had hydronephrosis in past requiring stent placement. pt relates approx 1 week of mild uti s/s, seen by brigido bhardwaj. will continue to monitor.
--- NOTE | 2018-11-10 13:55 | NUR ---
ED Nurse Note: urine sent to lab
--- NOTE | 2018-11-10 14:24 | Emergency Room Report ---
History of Present Illness General Chief Complaint: Pain Source: Patient Present Illness HPI 38-year-old female presents to the emergency department complaining of 9 out of 10 severity progressive right-sided flank pain x3 days. Patient reports UTI symptoms of dysuria,external vaginal itching and urinary frequency and no response to Pyridium x1 week. Denies vaginal d/c. Patient reports history of hydronephrosis in the past requiring stent placement. She denies fevers or chills, nausea, vomiting or suspicion of . History of ovarian cysts but denies adnexal pain or tenderness. Denies abdominal pain or tenderness and reports pain is been constant and localized to has not radiated or migrated. States that she regularly takes Ultram for chronic neck pain and states that even on this medication she has no relief of her symptoms. Pt. reports she has been taking Keflex for almost 1 week. Allergies: Coded Allergies: METOCLOPRAMIDE (Verified Allergy, Unknown, 05/28/16) Uncoded Allergies: IV CONTRAST (Allergy, Unknown, 05/28/16) Patient History Past Medical History: see triage record Past Surgical History: none Pertinent Family History: none Last Menstrual Period: 1 week Now: No Reviewed Nursing Documentation: PMH: Agreed; PSxH: Agreed Nursing Documentation-PMH Past Medical History: No History, Except For Hx Cardiac Problems: Yes - SVT Hx Hypertension: No Hx Pacemaker: No Hx Asthma: No Hx COPD: No Hx Diabetes: No Hx Cancer: No Hx Dialysis: No - Stent in right ureter Hx Neurological Problems: Yes - Left sided occipital neuralgia Hx Cerebrovascular Accident: No Hx Seizures: No Review of Systems All Other Systems: negative except mentioned in HPI Physical Exam Vital Signs Date Time Temp Pulse Resp B/P (MAP) Pulse Ox O2 Delivery O2 Flow Rate FiO2 11/10/18 13:37 98.4 91 20 139/91 (107) 99 Room Air Sp02 EP Interpretation: reviewed, normal General Appearance: alert, GCS 15, non-toxic, moderate distress Head: normocephalic, atraumatic Eyes: bilateral eye normal inspection, bilateral eye PERRL ENT: hearing grossly normal, normal voice Neck: full range of motion Respiratory: lungs clear, normal breath sounds, speaking full sentences Cardiovascular #1: regular rate, rhythm Gastrointestinal: normal bowel sounds, non tender, soft, non-distended, no guarding Genitourinary: normal inspection, adnexa normal, CVA tenderness (R) Musculoskeletal: back normal, gait/station normal, normal range of motion, non- tender Neurologic: alert, oriented x3, responsive, motor strength/tone normal, sensory intact, speech normal, grossly normal Psychiatric: judgement/insight normal Lymphatic: no adenopathy Medical Decision Making PA Attestation Dr. Moreau is my supervising Physician whom patient management has been discussed with. Diagnostic Impression: Primary Impression: Bilateral renal stones Additional Impressions: Renal colic on right side Ovarian cyst Qualified Codes: N83.202 - Unspecified ovarian cyst, left side ER Course 38-year-old female presents to the emergency department complaining of 9 out of 10 severity progressive right-sided flank pain x3 days. Patient reports UTI symptoms of dysuria,external vaginal itching and urinary frequency and no response to Pyridium x1 week. Denies vaginal d/c. Patient reports history of hydronephrosis in the past requiring stent placement. She denies fevers or chills, nausea, vomiting or suspicion of . History of ovarian cysts but denies adnexal pain or tenderness. Denies abdominal pain or tenderness and reports pain is been constant and localized to has not radiated or migrated. States that she regularly takes Ultram for chronic neck pain and states that even on this medication she has no relief of her symptoms. Pt. reports she has been taking Keflex for almost 1 week. Ddx considered but are not limited to Diverticulitis, acute appy, diarrhea,UC, PUD, GE, pancreatitis, gallstone, kidney stone, pyelonephritis, UTI, obstruction. Vital signs: are WNL, pt. is afebrile H&PE are most consistent with possible renal calculi vs UTI ORDERS: -Urine Hcg: Negative - UA: WNL no evidence of infection, no RBCs - US renal: Bilateral non-obstructing small renal calculi, mild right hydronephrosis, left ovarian cyst. ED INTERVENTIONS: -- 1000NS --4mg Morphine for pain -25mg Benadryl IV -Toradol IV DISCHARGE: At this time pt. is stable for d/c to home. Will provide printed patient care instructions, and any necessary prescriptions. Care plan and follow up instructions have been discussed with the patient prior to discharge. Labs Test 11/10/18 14:30 Urine Color Pale yellow Urine Appearance Clear Urine pH 5 (4.5-8.0) Urine Specific [place] 1.025 (1.005-1.035) Urine Protein Negative (NEGATIVE) Urine Glucose (UA) Negative (NEGATIVE) Urine Ketones Negative (NEGATIVE) Urine Blood Negative (NEGATIVE) Urine Nitrite Negative (NEGATIVE) Urine Bilirubin Negative (NEGATIVE) Urine Urobilinogen Normal MG/DL (0.0-1.0) Urine Leukocyte Esterase Negative (NEGATIVE) Urine HCG, Qualitative Negative (NEGATIVE) CT/MRI/US Diagnostic Results CT/MRI/US Diagnostic Results : Imaging Test Ordered: Renal US Impression "Mild right hydronephrosis, etiology not demonstrated. Probable bilateral nonobstructive calyceal calculi. 7.3 cm left ovarian cyst noted"--per official radiology report- Please see report for specific details. Last Vital Signs Date Time Temp Pulse Resp B/P (MAP) Pulse Ox O2 Delivery O2 Flow Rate FiO2 11/10/18 13:37 98.4 91 20 139/91 (107) 99 Room Air Status: improved Disposition: HOME, SELF-CARE Condition: Stable Scripts Fluconazole (FLUCONAZOLE) 100 Mg Tablet 100 MG ORAL DAILY, #2 TAB 0 Refills Prov: Yamile Mohr 11/10/18 Oxycodone/Acetaminophen 5-325* (PERCOCET 5-325 MG TABLET*) 1 Each Tablet 1 TAB ORAL Q8H PRN for For Pain, #6 TAB 0 Refills Prov: Yamile Mohr 11/10/18 Tamsulosin HCl (Flomax) 0.4 Mg Cap.er.24h 0.4 MG ORAL DAILY, #5 CAP Prov: Yamile Mohr 11/10/18 Patient Instructions: Dietary Guidelines to Help Prevent Kidney Stones, Kidney Stones, [id number] Additional Instructions: Take medications as directed. Do not drink alcohol, drive or operate heavy machinery while taking Percocet. Please note that this medication has a high likelihood of addiction and should only be taken for severe pain. Follow up with a Primary Care Provider in 3-5 days For a referral to have UROLOGIST Evaluation, even if your symptoms have resolved. --Please review contact information for our urologist, if you do not already have a primary care provider Return sooner to ED if new symptoms occur, or current symptoms become worse. - Please note that this Emergency Department Report was dictated using [employer] advisor technology software, occasionally this can lead to erroneous entry secondary to interpretation by the dictation equipment. Yamile Mohr Nov 10, 2018 14:24
[2018-11-10] MEDS ORDERED: DiphenhydrAMINE 50mg/ml Inj IVP ONE (14:30)
[2018-11-10] MEDS ORDERED: Morphine Sulfate 4mg/ml Inj (IV USE ONLY) IVP ONE (14:30)
[2018-11-10 14:51] LABS: APPEARANCE,URINE CLEAR; BILIRUBIN, URINE NEGATIVE (NEGATIVE); COLOR,URINE PALE YELLOW; GLUCOSE, URINE (UA) NEGATIVE (NEGATIVE); KETONES,URINE NEGATIVE (NEGATIVE); LEUKOCYTE ESTERASE ,URINE NEGATIVE (NEGATIVE); NITRITE,URINE NEGATIVE (NEGATIVE); PH,URINE 5 (4.5-8.0); PROTEIN,URINE NEGATIVE (NEGATIVE); UROBILINOGEN,URINE NORMAL MG/DL (0.0-1.0)
--- NOTE | 2018-11-10 15:47 | Diagnostic Imaging Report ---
Indication: Flank pain Technique: Grayscale and duplex images of the kidneys, retroperitoneum, and bladder were obtained. Comparison: 04/09/2017 Findings: Right kidney measures 11.5 cm in length. Left kidney measures 11.3 cm in length. Both kidneys demonstrate normal echogenicity. There is mild right hydronephrosis. No hydronephrosis is seen on the left. There is a small cyst in the left renal upper pole. Previously demonstrated lower pole left renal cyst is not evident on the current exam. There is questionably a 4 mm right renal calyceal calculus and a questionable 4 mm left renal calyceal calculus, that on the right also evident previously. Normal inferior vena cava. Bladder is normal. Note that both ureteral jets are demonstrated. Incidentally noted is a 7.3 cm cyst in the left ovary. Impression: Mild right hydronephrosis, etiology not demonstrated Probable bilateral nonobstructive calyceal calculi 7.3 cm left ovarian cyst noted. Note that this is not evident on a prior pelvic sonogram of 04/09/2017. Further evaluation with dedicated pelvic sonography should be considered.
--- NOTE | 2018-11-10 15:51 | NUR ---
ED Nurse Note: pt with iv started after bedside ultrasound completed. unable to obtain labs, [employer] [facility] [employer] called to draw pt. primary rn aware.
[2018-11-10] MEDS ORDERED: PERCOCET 5-3251 EACH ORAL (16:19)
[2018-11-10] MEDS ORDERED: FLUCONAZOLE100 MG ORAL (16:19)
[2018-11-10] MEDS ORDERED: FLOMAX0.4 MG ORAL (16:19)
[2018-11-10] MEDS ORDERED: Ketorolac 30mg Inj IV ONE (16:30)
[2018-11-10 16:33] VITALS: BP 139/91
--- NOTE | 2018-11-10 16:33 | NUR ---
ER DISCHARGE NOTE: Patient is cleared to be discharged per ERMD, pt is aox4, on room air, with stable vital signs. pt was given dc and prescription instructions, pt was able to verbalize understanding, pt id band and iv site removed without complications. pt is able to ambulate with steady gait. pt took all belongings.
== END 2018-11-10 16:33 | disposition home or self-care (01) ==
LOC: EMR 14:20
DX: N20.0 Calculus of kidney (principal); N83.202 Unspecified ovarian cyst, left side; Z88.8 Allergy status to other drugs, medicaments and biological substances; Z91.041 Radiographic dye allergy status; N13.2 Hydronephrosis with renal and ureteral calculous obstruction
CPT/HCPCS: 76770; 81003; 81025; 96361; 96374; 96375; 99284; J1200; J1885; J2270

== ENCOUNTER 2019-10-21 21:42 | Emergency (ER) | payer MEDICAID, OTHER ==
[~2019-10-21] VITALS: Ht 167.6 cm; Wt 61.2 kg
[~2019-10-21 21:42] MED LIST changes: +CEPHALEXIN500 MG ORAL; +FLOMAX0.4 MG ORAL; +FLUCONAZOLE100 MG ORAL; +ROBAXIN500 MG PO
[2019-10-21] MEDS ORDERED: CYCLOBENZAPRINE10 MG ORAL (21:52)
[2019-10-21 21:56] VITALS: BP 149/98
--- NOTE | 2019-10-21 22:17 | Emergency Room Report ---
History of Present Illness General Chief Complaint: Female Urogenital Problems Source: Patient Present Illness HPI Disclaimer: Please note that this report is being documented using [employer] technology. This can lead to erroneous entry secondary to incorrect interpretation by the dictating instrument. HPI: 39-year-old female history of vesicular ureteral reflux presents for evaluation of pelvic pain. Patient states 5 days of lower pelvic cramping, urinary frequency, urgency, dysuria and dark-colored urine. She denies fever, chills, diarrhea. Reports intermittent nausea and 2 episodes of vomiting yesterday but none today. Reports right-sided flank pain that is nonradiating. States she had a history of nephrostomy stents but they were removed. Denies possibility of as she is on control. Denies vaginal bleeding or vaginal discharge. PMH: Vesicoureteral reflux ruptured ovarian cysts PSH: Multiple nephrostomy stents Allergies: IV contrast, Reglan Social Hx: Denies drug or alcohol abuse Allergies: Coded Allergies: METOCLOPRAMIDE (Verified Allergy, Unknown, 05/28/16) Uncoded Allergies: IV CONTRAST (Allergy, Unknown, 05/28/16) COVID-19 Screening Contact w/high risk pt: No Recent Travel to affected area: No Experienced COVID-19 symptoms?: No COVID-19 Testing performed [employer]: No Patient History Last Menstrual Period: 09/2019 Nursing Documentation-PM Hx Hypertension: No Hx Pacemaker: No Hx Asthma: No Hx COPD: No Hx Diabetes: No Hx Cancer: No Hx Dialysis: No - Stent in right ureter Hx Neurological Problems: Yes - Left sided occipital neuralgia Hx Cerebrovascular Accident: No Hx Seizures: No Review of Systems All Other Systems: negative except mentioned in HPI Physical Exam Vital Signs Date Time Temp Pulse Resp B/P (MAP) Pulse Ox O2 Delivery O2 Flow Rate FiO2 10/21/19 21:47 98.2 120 16 149/98 (115) 97 Room Air General: Awake and alert, no acute distress HEENT: NC/AT. EOMI. Cardiovascular: RRR. S1 and S2 normal. No murmur appreciated Resp: Normal work of breathing. No cough, wheezing or crackles appreciated Abdomen: Abdomen is soft, nondistended. Tender palpation in the suprapubic region. Mild tenderness in the right and lower quadrants without rebound. Right-sided flank CVA tenderness. Skin: Intact. No abrasions, laceration or rash over the exposed skin MSK: Normal tone and bulk. Moving all extremities. No obvious deformity. Neuro: Awake and alert. Mentating appropriately. Medical Decision Making Diagnostic Impression: Primary Impression: UTI (urinary tract infection) Additional Impression: Pyelonephritis ER Course 39-year-old female presents for evaluation of 1 week lower pelvic pain and now right sudden flank pain. Differential includes was not limited to UTI, pyelonephritis, nephrolithiasis, re-urinary obstruction, ovarian cyst, ovarian torsion, PID to name a few. Most consistent with UTI, pyelonephritis or possible stone given the patient's history. Labs were obtained showing normal kidney function though evidence of an acute urinary tract infection. CT report does not show evidence of obstructive uropathy but does show mild bladder wall thickening which would be consistent with acute cystitis. Patient treated with Keflex in the emergency department and discharged on ciprofloxacin. We will follow-up with her PMD and urologist. Discussed reasons to return to the emergency department. She understands and agrees with this treatment plan. Laboratory Tests Test 10/21/19 22:12 10/21/19 23:08 Urine Color Pale yellow Urine Appearance Clear Urine pH 6.5 (4.5-8.0) Urine Specific [place] 1.005 (1.005-1.035) Urine Protein Negative (NEGATIVE) Urine Glucose (UA) Negative (NEGATIVE) Urine Ketones Negative (NEGATIVE) Urine Blood Negative (NEGATIVE) Urine Nitrite Negative (NEGATIVE) Urine Bilirubin Negative (NEGATIVE) Urine Urobilinogen Normal MG/DL (0.0-1.0) Urine Leukocyte Esterase 1+ (NEGATIVE) H Urine RBC 0-2 /HPF (0 - 2) Urine WBC 10-15 /HPF (0 - 2) H Urine Squamous Epithelial Cells Moderate /LPF (NONE/OCC) H Urine Bacteria Many /HPF (NONE) H Urine HCG, Qualitative Negative (NEGATIVE) White Blood Count 5.4 K/UL (4.8-10.8) Red Blood Count 4.19 M/UL (4.20-5.40) L Hemoglobin 13.5 G/DL (12.0-16.0) Hematocrit 41.1 % (37.0-47.0) Mean Corpuscular Volume 98 FL (80-99) Mean Corpuscular Hemoglobin 32.2 PG (27.0-31.0) H Mean Corpuscular Hemoglobin Concent 32.8 G/DL (32.0-36.0) Red Cell Distribution Width 12.3 % (11.6-14.8) Platelet Count 331 K/UL (150-450) Mean Platelet Volume 6.5 FL (6.5-10.1) Neutrophils (%) (Auto) 50.7 % (45.0-75.0) Lymphocytes (%) (Auto) 38.3 % (20.0-45.0) Monocytes (%) (Auto) 7.0 % (1.0-10.0) Eosinophils (%) (Auto) 2.4 % (0.0-3.0) Basophils (%) (Auto) 1.6 % (0.0-2.0) Sodium Level 142 MMOL/L (136-145) Potassium Level 4.1 MMOL/L (3.5-5.1) Chloride Level 105 MMOL/L (98-107) Carbon Dioxide Level 28 MMOL/L (21-32) Anion Gap 9 mmol/L (5-15) Blood Urea Nitrogen 14 mg/dL (7-18) Creatinine 1.0 MG/DL (0.55-1.30) Estimated Glomerular Filtration Rate > 60 mL/min (>60) Glucose Level 98 MG/DL (74-106) Calcium Level 8.9 MG/DL (8.5-10.1) Total Bilirubin 0.1 MG/DL (0.2-1.0) L Aspartate Amino Transferase (AST) 21 U/L (15-37) Alanine Aminotransferase (ALT) 19 U/L (12-78) Alkaline Phosphatase 76 U/L (46-116) Total Protein 8.0 G/DL (6.4-8.2) Albumin 4.1 G/DL (3.4-5.0) Globulin 3.9 g/dL Albumin/Globulin Ratio 1.1 (1.0-2.7) Lipase 100 U/L (73-393) CT/MRI/US Diagnostic Results CT/MRI/US Diagnostic Results : Impression Final Report EXAM: CT Abdomen and Pelvis Without Intravenous Contrast CLINICAL HISTORY: FLANK TECHNIQUE: Axial computed tomography images of the abdomen and pelvis without intravenous contrast. CTDI is 4 mGy and DLP is 215 mGy-cm. One or more of the following dose reduction techniques were used: automated exposure control, adjustment of the mA and/or kV according to patient size, use of iterative reconstruction technique. COMPARISON: 12/08/18 FINDINGS: Lung bases: Unremarkable. No mass. No consolidation. ABDOMEN: Liver: Unremarkable. Gallbladder and bile ducts: Unremarkable. No calcified stones. No ductal dilation. Pancreas: Unremarkable. No ductal dilation. Spleen: Unremarkable. No splenomegaly. Adrenals: Unremarkable. No mass. Kidneys and ureters: Unremarkable. No obstructing stones. No hydronephrosis. Stomach and bowel: Unremarkable. No obstruction. No mucosal thickening. PELVIS: Appendix: No findings to suggest acute appendicitis. Bladder: Mild bladder wall thickening indeterminate for cystitis. No stones. Reproductive: IUD present in the uterus. ABDOMEN and PELVIS: Intraperitoneal space: Unremarkable. No free air. No significant fluid collection. Bones/joints: No acute fracture. No dislocation. Soft tissues: Unremarkable. Vasculature: Unremarkable. No abdominal aortic aneurysm. Lymph nodes: Unremarkable. No enlarged lymph nodes. IMPRESSION: Negative for obstructive uropathy. Mild bladder wall thickening indeterminate for cystitis. Radiologist: Romario Araujo MD Electronically Signed: 10/22/19 00:57 Study ready at 00:41 and initial results transmitted at 00:57 Last Vital Signs Date Time Temp Pulse Resp B/P (MAP) Pulse Ox O2 Delivery O2 Flow Rate FiO2 10/21/19 21:56 98.2 16 149/98 97 Room Air 10/21/19 21:47 120 Disposition: HOME, SELF-CARE Condition: Stable Scripts Ciprofloxacin Hcl* (CIPROFLOXACIN HCL*) 500 Mg Tablet 500 MG ORAL Q12H for 7 Days, #14 TAB 0 Refills Prov: Camacho Gonzalez MD 10/22/19 Camacho Gonzalez MD Oct 21, 2019 22:17
[2019-10-21 22:46] LABS: APPEARANCE,URINE CLEAR; BILIRUBIN, URINE NEGATIVE (NEGATIVE); COLOR,URINE PALE YELLOW; GLUCOSE, URINE (UA) NEGATIVE (NEGATIVE); KETONES,URINE NEGATIVE (NEGATIVE); LEUKOCYTE ESTERASE ,URINE 1+ (NEGATIVE); NITRITE,URINE NEGATIVE (NEGATIVE); PH,URINE 6.5 (4.5-8.0); PROTEIN,URINE NEGATIVE (NEGATIVE); UROBILINOGEN,URINE NORMAL MG/DL (0.0-1.0)
[2019-10-21 23:40] LABS: BASOPHILS % (AUTO) 1.6 % (0.0-2.0); EOSINOPHILS % (AUTO) 2.4 % (0.0-3.0); HEMATOCRIT 41.1 % (37.0-47.0); HEMOGLOBIN 13.5 G/DL (12.0-16.0); LYMPHOCYTES % (AUTO) 38.3 % (20.0-45.0); MEAN CORPUSCULAR VOLUME 98 FL (80-99); NEUTROPHILS % (AUTO) 50.7 % (45.0-75.0); PLATELET COUNT 331 K/UL (150-450); RED BLOOD COUNT 4.19 M/UL (4.20-5.40); RED CELL DISTRIBUTION WIDTH 12.3 % (11.6-14.8); WHITE BLOOD COUNT 5.4 K/UL (4.8-10.8)
[2019-10-21 23:47] LABS: ANION GAP 9 mmol/L (5-15); BLOOD UREA NITROGEN 14 mg/dL (7-18); CALCIUM 8.9 MG/DL (8.5-10.1); CARBON DIOXIDE 28 MMOL/L (21-32); CHLORIDE 105 MMOL/L (98-107); POTASSIUM 4.1 MMOL/L (3.5-5.1); SODIUM 142 MMOL/L (136-145)
[2019-10-21 23:52] LABS: ALANINE AMINOTRANSFERASE 19 U/L (12-78); ALBUMIN 4.1 G/DL (3.4-5.0); ALBUMIN/GLOBULIN RATIO 1.1 (1.0-2.7); ALKALINE PHOSPHATASE 76 U/L (46-116); ASPARTATE AMINO TRANSFERASE 21 U/L (15-37); BILIRUBIN,TOTAL 0.1 MG/DL (0.2-1.0)
[2019-10-22] MEDS ORDERED: Ketorolac 30mg Inj IV ONE
[2019-10-22] MEDS ORDERED: cefTRIAXone 1 GM in NS 55 ML IVPB ONE (00:15)
[2019-10-22] MEDS ORDERED: Morphine Sulfate 4mg/ml Inj (IV USE ONLY) IVP ONE (00:45)
--- NOTE | 2019-10-22 00:57 | Diagnostic Imaging Report ---
EXAM: CT Abdomen and Pelvis Without Intravenous Contrast CLINICAL HISTORY: FLANK TECHNIQUE: Axial computed tomography images of the abdomen and pelvis without intravenous contrast. CTDI is 4 mGy and DLP is 215 mGy-cm. One or more of the following dose reduction techniques were used: automated exposure control, adjustment of the mA and/or kV according to patient size, use of iterative reconstruction technique. COMPARISON: 12/08/18 FINDINGS: Lung bases: Unremarkable. No mass. No consolidation. ABDOMEN: Liver: Unremarkable. Gallbladder and bile ducts: Unremarkable. No calcified stones. No ductal dilation. Pancreas: Unremarkable. No ductal dilation. Spleen: Unremarkable. No splenomegaly. Adrenals: Unremarkable. No mass. Kidneys and ureters: Unremarkable. No obstructing stones. No hydronephrosis. Stomach and bowel: Unremarkable. No obstruction. No mucosal thickening. PELVIS: Appendix: No findings to suggest acute appendicitis. Bladder: Mild bladder wall thickening indeterminate for cystitis. No stones. Reproductive: IUD present in the uterus. ABDOMEN and PELVIS: Intraperitoneal space: Unremarkable. No free air. No significant fluid collection. Bones/joints: No acute fracture. No dislocation. Soft tissues: Unremarkable. Vasculature: Unremarkable. No abdominal aortic aneurysm. Lymph nodes: Unremarkable. No enlarged lymph nodes. IMPRESSION: Negative for obstructive uropathy. Mild bladder wall thickening indeterminate for cystitis.
[2019-10-22] MEDS ORDERED: CIPROFLOXACIN500 M2 ORAL (01:03)
[2019-10-22 01:30] VITALS: BP 136/82
== END 2019-10-22 01:30 | disposition home or self-care (01) ==
LOC: EMR 22:30
DX: N12 Tubulo-interstitial nephritis, not specified as acute or chronic (principal); Z88.8 Allergy status to other drugs, medicaments and biological substances; Z91.041 Radiographic dye allergy status; Z97.5 Presence of (intrauterine) contraceptive device
CPT/HCPCS: 36415; 74176; 80053; 81003; 81025; 83690; 85025; 96361; 96365; 96375; J0696; J1885; J2270; J2405; J7030; Z7502; 87086; 99284